=== PATIENT | female | born 2000 | race American Indian/Alaskan Native ===

== ENCOUNTER 2021-10-04 10:58 | Emergency (ER) | payer BC ==
[2021-10-04] MEDS ORDERED: SODIUM CHLORIDE 0.9% 1000 ML 1,000 ML IV ONE (14:24)
[2021-10-04] MEDS ORDERED: ONDANSETRON 4 MG/2 ML INJ IV ONE (14:24)
[2021-10-04] MEDS ORDERED: DICYCLOMINE 20 MG TAB PO ONE (14:24)
--- NOTE | 2021-10-04 15:18 | Emergency Department Report ---
ED N/V/D HPI - General Chief complaint: Nausea/Vomiting/Diarrhea Stated complaint: N/D/V LIGHTHEADED Time Seen by Provider: 10/04/21 14:07 Source: patient Mode of arrival: Ambulatory Limitations: No Limitations - History of Present Illness Initial comments: 20-year-old black female with past medical history of irritable bowel syndrome presents to the emergency department for evaluation of persistent nausea and vomiting that started yesterday and now with lightheadedness and dizziness. She also complains of intermittent abdominal cramping. She denies fever, dysuria, diarrhea, and vaginal discharge. She states that 1 week ago she had food poisoning that lasted for 24 hours then resolved. She states that other family was in the house have the same type symptoms last week who also resolved but she is only one that has started getting sick again yesterday. MD complaint: nausea, vomiting, abdominal pain -: Gradual, days(s) (1) Associated Abdominal Pain: Yes Location: diffuse Radiation: none Severity: moderate, severe Pain Scale: 7 Quality: cramping Consistency: intermittent Associated Symptoms: nausea/vomiting. denies: myalgias, chest pain, cough, diaphoresis, fever/chills, headaches, loss of appetite, malaise, rash, dysuria, shortness of breath, syncope, weakness - Related Data Previous Rx's Medication Instructions Recorded Last Taken Type Dicyclomine [Bentyl] 20 mg PO QID PRN #21 tablet 10/04/21 Unknown Rx Ondansetron [Zofran Odt] 4 mg PO Q8HR PRN #12 tab.rapdis 10/04/21 Unknown Rx Allergies Allergy/AdvReac Type Severity Reaction Status Date / Time No Known Allergies Allergy Unverified 10/04/21 12:28 ED Review of Systems ROS: Stated complaint: N/D/V LIGHTHEADED Other details as noted in HPI Comment: All other systems reviewed and negative Constitutional: denies: chills, fever Respiratory: denies: shortness of breath, SOB with exertion, SOB at rest Cardiovascular: denies: chest pain, palpitations, dyspnea on exertion, edema, syncope Gastrointestinal: abdominal pain, nausea, vomiting. denies: diarrhea, hematemesis, melena, hematochezia Genitourinary: denies: urgency, dysuria, frequency, hematuria, discharge Musculoskeletal: denies: back pain Skin: denies: rash, lesions Neurological: denies: headache, weakness ED Past Medical Hx - Medications Home Medications: Home Medications Medication Instructions Recorded Confirmed Last Taken Type Dicyclomine [Bentyl] 20 mg PO QID PRN #21 tablet 10/04/21 Unknown Rx Ondansetron [Zofran Odt] 4 mg PO Q8HR PRN #12 tab.rapdis 10/04/21 Unknown Rx ED Physical Exam - General Limitations: No Limitations General appearance: alert, in no apparent distress - Head Head exam: Present: atraumatic, normocephalic - Eye Eye exam: Present: normal appearance. Absent: conjunctival injection - Neck Neck exam: Present: normal inspection. Absent: tenderness - Respiratory Respiratory exam: Present: normal lung sounds bilaterally. Absent: respiratory distress, wheezes, rales, rhonchi, stridor, chest wall tenderness - Cardiovascular Cardiovascular Exam: Present: regular rate, normal heart sounds - GI/Abdominal GI/Abdominal exam: Present: soft, normal bowel sounds. Absent: distended, tenderness, guarding, rebound, rigid - Extremities Exam Extremities exam: Present: normal inspection, normal capillary refill. Absent: pedal edema, joint swelling - Back Exam Back exam: Present: normal inspection. Absent: tenderness, CVA tenderness (R), CVA tenderness (L) - Neurological Exam Neurological exam: Present: alert, oriented X3 - Psychiatric Psychiatric exam: Present: normal affect, normal mood - Skin Skin exam: Present: warm, dry, intact, normal color ED Course Vital Signs 10/04/21 12:32 Temperature 98.5 F Pulse Rate 84 Respiratory 18 Rate Blood Pressure 117/66 [Right] O2 Sat by Pulse 99 Oximetry - Reevaluation(s) Reevaluation #1: 10/04/21 16:26 Lightheadedness resolved after IV fluids. Nausea vomiting and abdominal cramping resolved. Patient states that she feels much better. ED Medical Decision Making - Lab Data Result diagrams: 10/04/21 14:53 10/04/21 14:53 - Medical Decision Making 20-year-old black female with past medical history of irritable bowel syndrome presents to the emergency department for evaluation of persistent nausea and vomiting that started yesterday and now with lightheadedness and dizziness. She also complains of intermittent abdominal cramping. She denies fever, dysuria, diarrhea, and vaginal discharge. She states that 1 week ago she had food poisoning that lasted for 24 hours then resolved. She states that other family was in the house have the same type symptoms last week who also resolved but she is only one that has started getting sick again yesterday. No acute abnormalities noted on labs. Urine negative for UTI and . Symptoms resolved after medications. Patient will be treated for her gastroent eritis and sent home with Zofran and Bentyl to use as needed and advised to drink plenty of p.o. fluids and follow-up with primary care provider as needed. She verbalized understanding of and agreement with plan of care. - Differential Diagnosis n/v in , cyclic vomiting syndrome, stomach virus, gastroparesis Critical care attestation.: If time is entered above; I have spent that time in minutes in the direct care of this critically ill patient, excluding procedure time. ED Disposition Clinical Impression: Gastroenteritis Disposition: 01 HOME / SELF CARE / HOMELESS Is pt being admited?: No Does the pt Need Aspirin: No Condition: Stable Instructions: Viral Gastroenteritis, Adult, [id number] Additional Instructions: Take medications as prescribed. Drink plenty of noncaffeinated fluids. Follow- up with primary care provider for further evaluation and management. Return to the emergency department for any concerning symptoms. Prescriptions: Dicyclomine [Bentyl] 20 mg PO QID PRN #21 tablet PRN Reason: Pain, Moderate (4-6) Ondansetron [Zofran Odt] 4 mg PO Q8HR PRN #12 tab.rapdis PRN Reason: Nausea And Vomiting Referrals: MANUELA ALANIZ MD [Referring] - 3-5 Days Forms: Work/School Release Form(ED) Time of Disposition: 16:29
[2021-10-04 15:21] LABS: Hematocrit 34.5 % (30.3-42.9); Hemoglobin 11.6 gm/dl (10.1-14.3); Mean Corpuscular HGB Conc 34 % (30-34); Mean Corpuscular Volume 95 fl (79-97); Platelet Count 260 K/mm3 (140-440); Red Blood Count 3.62 M/mm3 (3.65-5.03); Red Cell Distribution Width 13.1 % (13.2-15.2)
[2021-10-04 15:28] LABS: Alanine Aminotransferase 12 units/L (7-56); Blood Urea Nitrogen 9 mg/dL (7-17); Hemolysis Index 5
[2021-10-04 15:29] LABS: BUN/Creatinine Ratio 13
[2021-10-04 16:11] LABS: HCG Qualitative,Urine Negative (Negative)
[2021-10-04 16:22] LABS: Bacteria,Urine 1+ /HPF (Negative); Bilirubin,Urine NEG (Negative); Blood,Urine MOD (Negative); Color,Urine Yellow (Yellow); Mucus,Urine 3+ /HPF; Protein,Urine <15 mg/dL mg/dL (Negative); Urobilinogen,Urine < 2.0 mg/dL (<2.0)
[2021-10-04 16:53] VITALS: BP 114/75
== END 2021-10-04 16:53 | disposition home or self-care (01) ==
LOC: ED 10:58
DX: K52.9 Noninfective gastroenteritis and colitis, unspecified (principal)
CPT/HCPCS: 36415; 80053; 81001; 81025; 85027; 96361; 96374; 99283; J2405; J7030; Q0162